=== PATIENT | male | born 1970 | race Caucasian/White ===

== ENCOUNTER → 2017-02-03 | Outpatient (CLI) | payer BC, OTHER ==
--- NOTE | 2017-02-03 18:50 | DIAGNOSTIC IMAGING REPORT ---
MRI THE LEFT ELBOW NO CONTRAST CLINICAL HISTORY: Left elbow pain status post trauma. COMPARISON STUDY: No previous studies for comparison. FINDINGS: There are no suspicious areas of marrow edema. No osteochondral lesions are visualized. The radial and ulnar collateral ligaments appear intact. There is thickening and edema surrounding the biceps tendon insertion. The findings are consistent with a partial tear. There is mild edema within the supinator muscle where is positioned between the proximal radius and ulna. IMPRESSION: Partial tear of the distal biceps insertion. Electronically signed by: Jose Wilkinson M.D. 02/03/2017 6:49 PM Dictated Date/Time: 02/03/2017 6:42 PM
== END | disposition home or self-care (01) ==
LOC: C.MRI 17:26
PROVIDERS: ATTEND Orthopaedic Surgery
DX: S46.219A Strain of muscle, fascia and tendon of other parts of biceps, unspecified arm, initial encounter (principal); X58.XXXA Exposure to other specified factors, initial encounter